=== PATIENT | male | born 1980 | race Caucasian/White ===

== ENCOUNTER → 2022-02-15 | Outpatient (CLI) | payer OTHER ==
[2022-02-15 09:43] LABS: BASO # 0.1 10^3/uL (0.0-0.2); BASO % 0.8 % (0.0-1.0); EOS # 0.3 10^3/uL (0.0-0.5); EOS % 3.1 % (0.0-3.0); HEMATOCRIT 46.9 % (42.0-52.0); HEMOGLOBIN 15.6 g/dl (13.5-17.5); LYMPH # 2.6 10^3/uL (1.5-5.0); LYMPH % 27.2 % (24.0-44.0); MEAN CORPUSCULAR HEMOGLOBIN 29.9 pg (27.0-33.0); MEAN CORPUSCULAR HGB CONC 33.3 g/dl (32.0-36.5); MONO # 0.7 10^3/uL (0.0-0.8); MONO % 7.5 % (2.0-8.0); NEUTROPHILS # 5.9 10^3/uL (1.5-8.5); NEUTROPHILS % 61.2 % (36.0-66.0); PLATELET COUNT, AUTOMATED 203 10^3/uL (150-450); RED BLOOD COUNT 5.21 10^6/uL (4.30-6.10); WHITE BLOOD COUNT 9.7 10^3/uL (4.0-10.0)
[2022-02-15 10:32] LABS: FREE T4 0.84 NG/DL (0.76-1.46); THYROID STIMULATING HORMONE 0.856 uIU/ML (0.358-3.740)
[2022-02-15 11:32] LABS: PROLACTIN 6.7 NG/ML (2.1-17.7)
[2022-02-15 11:33] LABS: ESTRADIOL 38.2 PG/ML (<39.8); LUTEINIZING HORMONE 0.1 mIU/mL (1.5-9.3)
[2022-02-15 11:34] LABS: FOLLICLE STIMULATING HORMONE 0.6 mIU/mL (1.4-18.1)
[2022-02-16 21:15] LABS: TESTOSTERONE FREE (DIRECT) 43.1 pg/mL (6.8-21.5)
== END ==
LOC: M LAB 08:41
PROVIDERS: ATTEND Internal Medicine
DX: E29.1 Testicular hypofunction (principal)

== ENCOUNTER → 2022-04-19 | Outpatient (CLI) | payer OTHER ==
[2022-04-19 10:18] LABS: BASO # 0.1 10^3/uL (0.0-0.2); BASO % 0.8 % (0.0-1.0); EOS # 0.2 10^3/uL (0.0-0.5); EOS % 2.5 % (0.0-3.0); HEMATOCRIT 48.8 % (42.0-52.0); LYMPH # 2.2 10^3/uL (1.5-5.0); LYMPH % 26.3 % (24.0-44.0); MEAN CORPUSCULAR HEMOGLOBIN 29.5 pg (27.0-33.0); MEAN CORPUSCULAR HGB CONC 32.8 g/dl (32.0-36.5); MONO # 0.6 10^3/uL (0.0-0.8); MONO % 6.8 % (2.0-8.0); NEUTROPHILS # 5.3 10^3/uL (1.5-8.5); NEUTROPHILS % 63.1 % (36.0-66.0); PLATELET COUNT, AUTOMATED 213 10^3/uL (150-450); RED BLOOD COUNT 5.42 10^6/uL (4.30-6.10); WHITE BLOOD COUNT 8.3 10^3/uL (4.0-10.0)
[2022-04-20 15:08] LABS: TESTOSTERONE FREE (DIRECT) 37.6 pg/mL (6.8-21.5)
== END ==
LOC: M LAB 09:06
DX: E29.1 Testicular hypofunction (principal)

== ENCOUNTER 2022-10-15 09:51 | Emergency (ER) | payer OTHER ==
[~2022-10-15] VITALS: Ht 175.3 cm; Wt 77.3 kg
[2022-10-15 09:51] VITALS: TEMP 98.6
[2022-10-15 13:35] VITALS: BP 147/76; O2SAT 99
== END 2022-10-15 13:36 | disposition home or self-care (01) ==
LOC: M ED 09:51
DX: S22.42XA Multiple fractures of ribs, left side, initial encounter for closed fracture (principal); V86.56XA Driver of dirt bike or motor/cross bike injured in nontraffic accident, initial encounter; Y92.89 Other specified places as the place of occurrence of the external cause; Y93.89 Activity, other specified; Y99.8 Other external cause status; M19.90 Unspecified osteoarthritis, unspecified site; E78.00 Pure hypercholesterolemia, unspecified; Z88.0 Allergy status to penicillin

== ENCOUNTER 2022-12-02 16:32 | Emergency (ER) | payer OTHER ==
[~2022-12-02] VITALS: Ht 175.3 cm; Wt 80.7 kg
[2022-12-02 16:32] VITALS: TEMP 98.1
[2022-12-02] MEDS ORDERED: MELO15TA28 PO (16:42)
[2022-12-02] MEDS ORDERED: ROSU40TA4 PO (16:42)
[2022-12-02] MEDS ORDERED: CLON0.5T17 PO (16:43)
[2022-12-02] MEDS ORDERED: VITA100093 PO (16:43)
[2022-12-02] MEDS ORDERED: BOOSTRIX VACCINE (TETANUS/DIPHTH/ACEL. PERTUSSIS) 0.5ML SYR IM ONE (18:35)
[2022-12-02 19:02] VITALS: BP 143/81; O2SAT 99
[2022-12-04] MEDS ORDERED: JARD1TAB PO (11:35)
[2022-12-04] MEDS ORDERED: SILD100T PO (11:35)
[2022-12-04] MEDS ORDERED: TEST200I14 IM (11:35)
== END 2022-12-02 19:04 | disposition home or self-care (01) ==
LOC: M ED 16:32
DX: S62.613A Displaced fracture of proximal phalanx of left middle finger, initial encounter for closed fracture (principal); F17.200 Nicotine dependence, unspecified, uncomplicated; E78.5 Hyperlipidemia, unspecified; V86.56XA Driver of dirt bike or motor/cross bike injured in nontraffic accident, initial encounter; Y92.410 Unspecified street and highway as the place of occurrence of the external cause; Z79.899 Other long term (current) drug therapy

== ENCOUNTER 2022-12-06 10:39 | Day surgery (SDC) | payer OTHER ==
[~2022-12-06] VITALS: Ht 175.3 cm; Wt 80.2 kg
[~2022-12-06 10:39] MED LIST: CLON0.5T17 PO; JARD1TAB PO; MELO15TA28 PO; ROSU40TA4 PO; SILD100T PO; TEST200I14 IM; VITA100093 PO
[2022-12-06] MEDS ORDERED: INSULIN LISPRO (NovoLOG) PER UNIT SC PRN ×2 (10:55→12:50)
[2022-12-06] MEDS ORDERED: LR 1,000 ML IV SCH ×2 (10:55→12:50)
[2022-12-06] MEDS ORDERED: MIDAZOLAM INJ 2MG/2ML VIAL As Ordered ONE (11:03)
[2022-12-06] MEDS ORDERED: fentaNYL 100 MCG/2 ML INJECTION As Ordered ONE (11:03)
[2022-12-06] MEDS ORDERED: ACETAMINOPHEN 1000MG 100ML IV BAG As Ordered ONE (11:04)
[2022-12-06] MEDS ORDERED: KETOROLAC 60MG 2ML VIAL As Ordered ONE (11:04)
[2022-12-06] MEDS ORDERED: ONDANSETRON 4MG 2ML VIAL As Ordered ONE (11:04)
[2022-12-06] MEDS ORDERED: propofoL 200 MG/20 ML VIAL As Ordered ONE (11:04)
[2022-12-06] MEDS ORDERED: LIDOCAINE 2% 100MG/5ML SDV (FOR ANES.) As Ordered ONE (11:04)
[2022-12-06] MEDS ORDERED: VANCOMYCIN HCL 1,000 MG, VIAL MATE ADAPTER 1 EACH in D5W 250 ML IV ONE (11:05)
[2022-12-06] MEDS ORDERED: BACITRACIN OINTMENT 30GM TUBE As Ordered ONE (11:16)
[2022-12-06] MEDS ORDERED: oxyCODONE 5MG TAB PO PRN (12:50)
[2022-12-06] MEDS ORDERED: fentaNYL 100 MCG/2 ML INJECTION IV PRN (12:50)
[2022-12-06] MEDS ORDERED: METOCLOPRAMIDE INJ 10MG/2ML VIAL IV PRN (12:50)
[2022-12-06] MEDS ORDERED: HYDROMORPHONE HCL 0.5 MG/ 0.5 ML SYRINGE IV PRN (12:50)
[2022-12-06] MEDS ORDERED: ONDANSETRON 4MG 2ML VIAL IV PRN (12:50)
[2022-12-06] MEDS ORDERED: PERC5TAB12 PO (12:57)
[2022-12-06 13:53] VITALS: BP 119/79; TEMP 97.3; O2SAT 97
== END 2022-12-06 14:10 | disposition home or self-care (01) ==
LOC: M SDC 10:39
PROVIDERS: ATTEND Orthopaedic Surgery Hand Surgery
DX: S62.612A Displaced fracture of proximal phalanx of right middle finger, initial encounter for closed fracture (principal); X58.XXXA Exposure to other specified factors, initial encounter; Y92.89 Other specified places as the place of occurrence of the external cause; R06.83 Snoring; F17.219 Nicotine dependence, cigarettes, with unspecified nicotine-induced disorders; Z88.1 Allergy status to other antibiotic agents
CPT/HCPCS: 26727; 76000; C1713; J0131; J0665; J1100; J1885; J2250; J2405; J3010

== ENCOUNTER → 2022-12-16 | Outpatient (CLI) | payer OTHER ==
[~2022-12-16] MED LIST changes: +PERC5TAB12 PO
== END ==
LOC: M SOG 08:03
PROVIDERS: ATTEND Physician Assistant
DX: Z47.89 Encounter for other orthopedic aftercare (principal)

== ENCOUNTER → 2024-12-02 | Outpatient (CLI) | payer OTHER ==
[~2024-12-02] MED LIST changes: -ROSU40TA4 PO; +ROSU40TA81 PO
[2024-12-02 09:40] LABS: BASO # 0.1 10^3/uL (0.0-0.2); BASO % 0.8 % (0.0-1.0); EOS # 0.4 10^3/uL (0.0-0.5); EOS % 3.4 % (0.0-3.0); LYMPH # 2.2 10^3/uL (1.5-5.0); LYMPH % 21.3 % (24.0-44.0); MONO # 0.7 10^3/uL (0.0-0.8); MONO % 7.0 % (2.0-8.0); NEUTROPHILS # 6.9 10^3/uL (1.5-8.5); NEUTROPHILS % 67.2 % (36.0-66.0); PLATELET COUNT, AUTOMATED 171 10^3/uL (150-450)
[2024-12-07 15:14] LABS: TESTOSTERONE FREE (DIRECT) 113.9 pg/mL (35.0-155.0); TESTOSTERONE TOTAL FOR T&D 633.0 ng/dL (250-1100)
== END ==
LOC: M LAB 08:21
DX: E29.1 Testicular hypofunction (principal)
CPT/HCPCS: 36415; 84402; 84403; 85025; G0103

== ENCOUNTER → 2025-02-09 | Outpatient (CLI) | payer OTHER ==
[2025-02-09 09:29] LABS: BASO # 0.1 10^3/uL (0.0-0.2); BASO % 0.7 % (0.0-1.0); EOS # 0.3 10^3/uL (0.0-0.5); EOS % 2.5 % (0.0-3.0); LYMPH # 2.1 10^3/uL (1.5-5.0); LYMPH % 19.7 % (24.0-44.0); MONO # 0.7 10^3/uL (0.0-0.8); MONO % 6.5 % (2.0-8.0); NEUTROPHILS # 7.3 10^3/uL (1.5-8.5); NEUTROPHILS % 70.3 % (36.0-66.0); PLATELET COUNT, AUTOMATED 180 10^3/uL (150-450)
== END ==
LOC: M LAB 07:53
PROVIDERS: ATTEND Internal Medicine
DX: E29.1 Testicular hypofunction (principal)